=== PATIENT | female | born 1970 | race Caucasian/White ===

== ENCOUNTER 2017-11-22 22:43 | Inpatient (IN) | payer BC ==
[2017-11-22] MEDS ORDERED: Naloxone* 0.4 MG/ML 1 ML VIAL ONE (22:50)
[2017-11-22] MEDS ORDERED: Naloxone Nasal Spray* 4 MG/0.1 ML NASAL.SPR NASAL ONE (22:50)
[2017-11-22] MEDS: Naloxone* 0.4 MG/ML 1 ML VIAL IV PUSH ONE (22:55)
[2017-11-22] MEDS ORDERED: Dextrose 50% Syringe 50 ML* 25 GM/50 ML SYRINGE ONE (23:03)
[2017-11-22] MEDS ORDERED: Dextrose 50% Syringe 50 ML* 25 GM/50 ML SYRINGE IV PUSH ONE (23:05)
[2017-11-22] MEDS ORDERED: NS 0.9% 1000 ML* 1,000 ML IV SCH (23:15)
[2017-11-22 23:21] LABS: ABS Basophils 0 10^3/ul (0-0.2); ABS Eosinophils 0.2 10^3/ul (0-0.6); ABS Lymphocytes 3.3 10^3/ul (1.0-4.8); ABS Monocytes 0.7 10^3/ul (0-0.8); ABS Neutrophils 4.8 10^3/ul (1.5-7.7); ABS Nucleated RBC 0 10^3/ul; Eosinophil % 2.7 % (0-6); Hematocrit 38 % (35-47); Hemoglobin 12.8 g/dl (12.0-16.0); Lymphocyte % 36.2 % (25-47); Mean Corpuscular HGB Conc 34 g/dl (31-36); Mean Corpuscular Hemoglobin 32 pg (27-31); Mean Corpuscular Volume 95 fL (80-97); Mean Platelet Volume 9 um3 (7.4-10.4); Nucleated Red Blood Cells % 0.1; Platelet Count 347 10^3/ul (150-450); Red Blood Count 3.96 10^6/ul (4.0-5.4); Red Cell Distribution Width 13 % (10.5-15); White Blood Count 9.1 10^3/ul (3.5-10.8)
[2017-11-22 23:35] LABS: EGFR Non-African American 89.3 (>60)
[2017-11-22] MEDS ORDERED: Thiamine IV* 100 MG/ML 2 ML VIAL IM ONE (23:45)
[2017-11-23] MEDS: Naloxone* 0.4 MG/ML 1 ML VIAL IV PUSH ONE (00:12)
[2017-11-23] MEDS ORDERED: Naloxone* 0.4 MG/ML 1 ML VIAL ONE (00:15)
[2017-11-23] MEDS ORDERED: KETAMINE HCL* 50 MG/ML 10 ML VIAL ONE (00:24)
[2017-11-23] MEDS ORDERED: Propofol* 100 ML ONE (00:39)
[2017-11-23] MEDS ORDERED: fentaNYL* 50 MCG/ML 2 ML VIAL (100 MCG VIAL) ONE (00:49)
[2017-11-23] MEDS ORDERED: fentaNYL* 50 MCG/ML 2 ML VIAL (100 MCG VIAL) IV SLOW PU ONE (00:51)
[2017-11-23] MEDS ORDERED: Propofol* 500 MG/50 ML BTL IV SCH (01:00)
[2017-11-23] MEDS ORDERED: fentaNYL* 50 MCG/ML 2 ML VIAL (100 MCG VIAL) IV SLOW PU PRN (01:18)
[2017-11-23] MEDS ORDERED: LORazepam INJ* 2 MG/ML 1 ML VIAL IV PUSH PRN (01:21)
[2017-11-23] MEDS ORDERED: Naloxone* 0.4 MG/ML 1 ML VIAL IV PUSH ONE (02:00)
[2017-11-23] MEDS ORDERED: Propofol* 100 ML IV SCH (02:00)
[2017-11-23] MEDS ORDERED: NS 0.9% 1000 ML* 1,000 ML IV ONE (02:23)
[2017-11-23] MEDS: NS 0.9% 1000 ML* 1,000 ML IV SCH ×2 (03:28→17:43)
--- NOTE | 2017-11-23 04:14 | HP ---
CC: Dr. Beck* HISTORY AND PHYSICAL: DATE OF ADMISSION: 11/23/17 PRIMARY CARE PROVIDER: Dr. Beck. CHIEF COMPLAINT: Unresponsive. HISTORY OF PRESENT ILLNESS: Ms. Camarena is a 47-year-old female who is currently unresponsive and unable to provide any history. By report from the patient's ex- and daughter, the patient reportedly was drinking wine on the evening of 11/22/17 and drove to her horse barn. At some point, the patient 's ex- learnt that she was at the horse barn and he took a taxi out to go find her. When he arrived to the horse barn, he found her unresponsive in the bulk driver side seat with a cup of wine and possibly crushed up pills in the cup. The patient again was unresponsive and therefore he took her out of the bulk driver's seat, dragged her in the snow around to the passenger's side seat and drove her to the hospital. The patient upon presentation to the ER, was unresponsive. She received Narcan 0.4 mg x2. She reportedly did arouse following that. Ultimately it was determined that she needs to be intubated and she was successfully intubated in the emergency room. Of note, the patient had a prescription for Klonopin filled on 11/18/17. Reportedly all of the Klonopin pills were gone/missing. PAST MEDICAL HISTORY: Depression. PAST SURGICAL HISTORY: Bilateral foot surgery. MEDICATIONS: 1. Zoloft 50 mg p.o. daily. 2. Klonopin 0.5 mg p.o. b.i.d. p.r.n. anxiety. ALLERGIES: No known drug allergies. FAMILY HISTORY: Unobtainable from the patient and her ex- does not know. SOCIAL HISTORY: The patient is reportedly a nonsmoker. Her ex- believes that she drinks routinely but he is not sure. He states that when they were together she did not use recreational drugs but now is not sure. 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 She is . She has 2 children. REVIEW OF SYSTEMS: Unobtainable. PHYSICAL EXAMINATION GENERAL: The patient is a well-developed, middle-aged female lying in the stretcher intubated and unresponsive to voice or painful stimulus. VITAL SIGNS: Blood pressure 108/75, pulse 58, respirations 16, temp 94.6, O2 sat 100% on 50% FiO2. HEENT: Pupils are equal, they are round. They react to light. Oropharynx is intubated. There is no submandibular, cervical, or supraclavicular adenopathy. Thyroid is not enlarged. No thyroid nodules are noted. PULMONARY: Lungs are clear anteriorly and at the lateral bases. CARDIAC: Normal S1, S2. Heart rate is mildly bradycardic. It is regular. There are no murmurs. There is no lower extremity edema. ABDOMEN: Bowel sounds present. Abdomen is soft. Nontender, nondistended. MUSCULOSKELETAL: There is no cyanosis or clubbing of the digits. SKIN: Warm and dry. There are no rashes. There is evidence of prior bunionectomies on both feet. NEUROLOGIC: GCS 3T. PSYCH: Unable to be evaluated. LABORATORY DATA: WBC 9.1, hemoglobin 12.8, hematocrit 38, platelets 347. Sodium 137, potassium 3.9, chloride 104, CO2 of 27, BUN 11, creatinine 0.7. Glucose 101, calcium 8.8, bilirubin 0.2, AST 20, ALT 14, alk phos 59, albumin 4.2. Tox: Serum alcohol 193. Urine drug screen positive for opiates. Chest x-ray post intubation reveals an ET tube approximately 3 cm above the carlyn, a non-inspiratory film and no clear evidence of infiltrates. ASSESSMENT AND PLAN: Ms. Camarena is a 47-year-old female with history of depression and anxiety based on medication prescriptions who was found unresponsive by her ex- in her car with what appeared to be a cup of wine and crushed up pills in it. 1. Likely overdose: Based on the urine drug screen, it appears the patient likely overdosed on opiates. She did also reportedly arouse to Narcan administration. The patient is now intubated for airway protection and will be maintained on a propofol infusion titrating to a RASP of negative 2. Once she is extubated, a psychiatry consultation should likely be requested. 2. Alcohol intoxication: It is unclear, how much the patient drinks at baseline. As her drinking status is unclear, the patient will be started on a WAM protocol q. 2 hours. 3. Hypothermia: The patient was found in her car with the motor off. The patient will be maintained on a Melina hugger. Temperature will be monitored via Paredes probe. 4. Depression: For now, the patient's Zoloft and Klonopin will be held. 5. DVT prophylaxis: According to the adult thrombosis prophylaxis risk factor assessment guide, the patient had a total risk factor score of 2, making her moderate risk. She will be placed on heparin 5000 units subcutaneous q.12 hours. Code status is full and her surrogate decision maker at this time is unclear. TIME SPENT: Fifty minutes of critical care time was spent on this patient. [id number]/[facility] #: [id number] ANASTASIIA
[2017-11-23] MEDS: Heparin VIAL(*) 5000 UNITS/ML VIAL (FIVE THOUSAND) SUBCUT SCH ×3 (04:56→21:46)
[2017-11-23 05:30] LABS: Hematocrit 31 % (35-47); Hemoglobin 10.7 g/dl (12.0-16.0); Mean Corpuscular HGB Conc 34 g/dl (31-36); Mean Corpuscular Hemoglobin 32 pg (27-31); Mean Corpuscular Volume 95 fL (80-97); Mean Platelet Volume 9 um3 (7.4-10.4); Platelet Count 286 10^3/ul (150-450); Red Cell Distribution Width 13 % (10.5-15); White Blood Count 17.2 10^3/ul (3.5-10.8)
[2017-11-23 05:48] LABS: EGFR Non-African American 141.4 (>60)
--- NOTE | 2017-11-23 07:57 | RAD ---
Indication: Unresponsive. Single frontal view of the chest performed at 0050 hours was reviewed. No prior studies available.. No mediastinal shift is noted. Mild cardiomegaly with interstitial edema is noted. ET tube is at the level of T3-T4. Sclerosis in the proximal humerus may represent old bone infarct. IMPRESSION: ET TUBE IN APPROPRIATE LOCATION. MILD INTERSTITIAL EDEMA CONSISTENT WITH VASCULAR CONGESTION.
--- NOTE | 2017-11-23 07:58 | RAD ---
Indication: Nasogastric tube placement. Single frontal view of the chest performed at 0311 hours was reviewed. Comparison is made with previous exam dated earlier the same day. No mediastinal shift is noted. Heart is of normal size and configuration. ET tube is in place. Nasogastric tube is in place. IMPRESSION: NO ACTIVE CARDIOPULMONARY DISEASE IS NOTED. ET TUBE AND NASOGASTRIC TUBE ARE IN APPROPRIATE POSITION.
[2017-11-23] MEDS: Chlorhexidine MOUTHWASH 0.12%* 15 ML UDC TOPICAL SCH ×3 (09:23→18:04)
[2017-11-23] MEDS: Folic Acid TAB* 1 MG PO SCH (09:23)
[2017-11-23] MEDS: Pantoprazole IV* 40 MG IV SCH (09:23)
[2017-11-23] MEDS: Thiamine TAB* 100 MG TAB PO SCH (09:23)
--- NOTE | 2017-11-23 09:58 | PN ---
Date of Service: 11/23/17 - [facility] progress note Critical Care Services: Pt seen and examined at bedside. Pts ex- at bedside. Admission records reviewed, discused with Dr Adam. Pt admitted for AMS after overdose in possible suicide attempt , has h/o depression. PMHx, Social Hx, FHx, reviewed , unable to obtain any new pertinent info as pt remains intubated. REVIEW OF SYSTEMS: Unable to obtain due to intubated status MEDICATIONS: Reviewed and as per records. Vital Signs: Temp Pulse Resp BP SpO2 FiO2 100.4 F 77 19 124/76 99 50 11/23/17 09:30 11/23/17 09:30 11/23/17 09:00 11/23/17 09:30 11/23/17 09:30 11/23 04:01 Physical Exam: Neuro: On Fentanyl and Propofol, opens eyes to tactile stimuli HEENT: Pupils minimally responsive, ETT in place, OGT in place Cardiovascular: Regular, S1, S2+ Respiratory: Coarse breath sounds, no wheeze Abdomen: Obese, bowel sounds diminished Extremities: Edematous, no cyanosis Access: Peripheral IV Fluid Balance (Past 24 Hours): K=[id number] D=3232 Net -304 Intake & Output 11/21/17 11/22/17 11/23/17 11/24/17 06:59 06:59 06:59 06:59 Intake Total 1245.6 Output Total 1550 Balance -304.4 Weight 167 lb 15.876 oz Intake: IV Fluids 1194 NS (0.9%) 1194 Medicated IV 51.6 CC - Propofol/Diprivan 51.6 Output: Paredes 1550 Labs: Laboratory Results - last 24 hr 11/23/17 11/23/17 05:11 05:11 WBC 17.2 H RBC 3.30 L Hgb 10.7 L Hct 31 L MCV 95 MCH 32 H MCHC 34 RDW 13 Plt Count 286 MPV 9 Sodium 136 Potassium 4.0 Chloride 109 Carbon Dioxide 20 L Anion Gap 7 BUN 7 Creatinine 0.47 L Est GFR ( Amer) 181.9 Est GFR (Non-Af Amer) 141.4 BUN/Creatinine Ratio 14.9 Glucose 97 Calcium 7.1 L Studies: CXR: No acute opacities, ETT and OGT in optimal position Nutrition: NPO in anticipation of extubation Impression: 47 y o F with h/o depression admitted with AMS after overdose with Oxycodone, ETOH possible Klonepin with minimal response to Narcan, intubated for airway protection 1. AMS s/p intubation and mechanical ventilation 2. Drug overdose 3. Depression with possible suicidal attempt 4. Coffee ground through ETT 5.Normocytic anemia 6. ETOH abuse Plan: 1.Neuro: Sedation vacation this morning with plan for extubation when other parameters are acceptable. Propofol on hold, fent prn. Keep head of bed elevated at 30 degrees. 2.Cardiovascular: Hemodynamically stable, c/w IV fluids. 3.Respiratory: On CPAP trial, no significant secretions from ETT. Weaning as tolerated and extubation likely when all parameters met and more alert. 4.Gastrointestinal: NPO given plan for extubation. Having coffe ground fluid through OGT. On PPI. Will monitor closely given h/o ETOH abuse 5.Renal/Metabolic: BUN/Cr is within normal limits, no electrolyte abnormalities. c/w IV fluids, Monitor urine output closely 6.Infectious Disease: Leucocytosis likely reactive, no concern for infection, will check UA. Will hold off on abx for now. . 7.Hematology: Leucocytosis, reactive 8.Endocrine: Blood sugars not elevated 9.Musculoskeletal: Bedrest currently. 10.Psych/Social: Discussed with at bedside. Supportive and preventative care as ordered. SUP: ppi VTE prophylaxis: Heparin Paredes catheter given critical illness, monitoring needs for accurate assessment of TANA and KDIGO criteria for critically ill patients and to avoid potential harms of urinary retention, skin breakdown/ulcers. Disposition: ICU Code Status: Full Critical Care Time: 30min
[2017-11-23] MEDS ORDERED: Ondansetron INJ* 2 MG/ML VIAL ONE (11:32)
[2017-11-23] MEDS ORDERED: Ondansetron INJ* 2 MG/ML VIAL IV ONE ×2 (11:35→19:00)
[2017-11-23] MEDS ORDERED: Acetaminophen SUPP* 325 MG SUPP PR ONE (11:36)
--- NOTE | 2017-11-23 12:37 | PN ---
Progress Note - Progress Note Date of Service: 11/23/17 - Progress update Note: Pt did well on CPAP trial. Sedation held. Mental status improved, pt more alert and was following commands, breathing unlabored Pt met all parameters for extubation. She was extubated at 12: 30 pm. Pt currently on RA, in NAD No stridor on auscultation Pt verbalized to RN that she has taken oxycodone and Klenepin in suicidal attempt Pt reported to RN that she still contnues to have suicidal ideation 1:1 ordered Psych consult pending
[2017-11-23 17:42] LABS: Urine Appearance Clear; Urine Blood 3+ (Negative); Urine Color Straw; Urine Ketones Negative (Negative); Urine Protein Negative (Negative); Urine Specific Gravity 1.009 (1.010-1.030); Urine Urobilinogen Negative (Negative)
[2017-11-23] MEDS ORDERED: Acetaminophen TAB* 325 MG PO PRN ×2 (18:31→22:31)
[2017-11-23] MEDS ORDERED: Acetaminophen TAB* 325 MG ONE (18:45)
[2017-11-23] MEDS ORDERED: Piperacillin/Tazobac ADVAN(*) 3.375 GM in NS 0.9% 100 ML* 100 ML IVPB ONE (21:21)
--- NOTE | 2017-11-23 21:23 | PN ---
Progress Note - Progress Note Date of Service: 11/23/17 Note: Pt is now meeting 3 SIRS criteria (leukocytosis, tachypnea and fever). Will send blood culture x1, lactic acid and get portable CXR to eval for infiltrate. Will empirically start zosyn for possible aspiration. If lactic acid elevated ( or she shows other signs of severe sepsis) will bolus fluid.
[2017-11-23] MEDS ORDERED: Zosyn per Pharmacy* NOTE FOLLOW UP SCH (22:00)
[2017-11-24] MEDS: ZOSYN 3.375 GM Q8H per EXTENDED INFUSION IVPB SCH ×4 (01:55→10:49)
[2017-11-24] MEDS: NS 0.9% 1000 ML* 1,000 ML IV SCH (01:56)
[2017-11-24] MEDS: Heparin VIAL(*) 5000 UNITS/ML VIAL (FIVE THOUSAND) SUBCUT SCH ×3 (06:18→21:21)
--- NOTE | 2017-11-24 07:34 | RAD ---
HISTORY: Overdose, evaluate for infiltrates, no other history is provided COMPARISONS: November 23, 2017 at 3:11 AM VIEWS: 1: frontal portable view of the chest at 9:57 PM FINDINGS: LINES AND TUBES: None. CARDIOMEDIASTINAL SILHOUETTE: The cardiomediastinal silhouette is normal for portable technique. PLEURA: The costophrenic angles are sharp. No pleural abnormalities are noted. LUNG PARENCHYMA: The lungs are clear. ABDOMEN: The upper abdomen is clear. There is no subphrenic gas. BONES AND SOFT TISSUES: There is chondroid matrix of the proximal right forearm which may reflect bone infarct versus enchondroma. IMPRESSION: NO ACTIVE CARDIOPULMONARY DISEASE.
[2017-11-24] MEDS: Pantoprazole IV* 40 MG IV SCH (07:56)
[2017-11-24] MEDS: Folic Acid TAB* 1 MG PO SCH (07:56)
[2017-11-24] MEDS: Thiamine TAB* 100 MG TAB PO SCH (07:56)
--- NOTE | 2017-11-24 11:15 | PN ---
Progress Note - Progress Note Date of Service: 11/24/17 Note: CRITICAL CARE MEDICINE Date: 11/24/17 Time: 1045 SUBJECTIVE: Patient seen and examined. brother and pts daughter at bedside. pt gives permission for them to listen and ask question regarding care. PHYSICAL EXAM: Vital Signs: Reviewed. temp up slightly Neurologic: communicating. HEENT: pupils equal. Sclera anicteric. Trachea midline. Cardiovascular: S1 S2 Respiratory: cta but mild tachypnea Abdomen: Soft, nt. No r/g/r. Extremities: Warm. Psych: remorseful but with a depressive affect. Access: piv LABS: Reviewed. IMAGING: Reviewed. CXR wnl MEDICATIONS: Reviewed. ASSESSMENT: 47 F Intentional klondipin overdose with ongoing suicidal ideation Toxic encephalopathy on admission ? Aspiration pneumonitis ?flu Major depression PLAN: medically doing well but not completely clear for pysch yet - hopefully come tomorrow. Has low grade fever and placed on zosyn overnight. question flu. no infiltrate. if flu negative then more likely just aspiration. recheck wbc. if down, no reason for abx requirement either as again would be just aspiration. Ua neg. Pt feels better. remorseful. not much appetite. Oob. dc sara. dc ivf. psych eval pending floor today and then likely psych tomorrow. Supportive and preventative care as ordered. Disposition: floor Code Status: Full Critical Care Time: 25min Tirso Croft DO
[2017-11-24 11:26] LABS: ABS Basophils 0.1 10^3/ul (0-0.2); ABS Eosinophils 0.1 10^3/ul (0-0.6); ABS Lymphocytes 1.1 10^3/ul (1.0-4.8); ABS Monocytes 0.6 10^3/ul (0-0.8); ABS Neutrophils 8.2 10^3/ul (1.5-7.7); ABS Nucleated RBC 0 10^3/ul; Eosinophil % 1.4 % (0-6); Hematocrit 32 % (35-47); Lymphocyte % 10.6 % (25-47); Mean Corpuscular HGB Conc 34 g/dl (31-36); Mean Corpuscular Hemoglobin 32 pg (27-31); Mean Corpuscular Volume 94 fL (80-97); Mean Platelet Volume 8 um3 (7.4-10.4); Nucleated Red Blood Cells % 0; Platelet Count 238 10^3/ul (150-450); Red Blood Count 3.41 10^6/ul (4.0-5.4); Red Cell Distribution Width 13 % (10.5-15); White Blood Count 10.1 10^3/ul (3.5-10.8)
[2017-11-24 11:42] LABS: EGFR Non-African American 92.3 (>60)
[2017-11-24] MEDS ORDERED: Magnesium Sulfate 2 GM IV* 2 GM/50 ML BAG IVPB ONE (12:21)
[2017-11-24] MEDS ORDERED: Potassium Phosphate IV* 20 MMOLE in NS 0.9% 250 ML* 250 ML IVPB ONE (12:22)
--- NOTE | 2017-11-24 12:35 | CONSULT ---
Consult Consult: This clinician attempted to assess the patient in room 5 of the ICU. She was peacefully sleeping and I chose not to disturb her. I did speak with advisor advocate angel co founder attending Dr. Croft, who indicated that she was still running fevers today and may have influenza versus mild aspiration and would benefit from a further day on the medical service. He did observe that the patient appears remorseful for her overdose but with a depressed affect. Family ( daughter and brother) are supportive and wanting to be involved in her care. Full consult to follow tomorrow, November 25.
--- NOTE | 2017-11-24 18:14 | PN ---
Hospitalist Progress Note Date of Service: 11/24/17 I have seen and examined Ms. Camarena today. We will assume her care. She is a 47 yo lady with history of depression who drank wine and overdosed on oxycodone on 11/22. She required intubation at admission, and has been having fevers and leukocytosis in the ICU. An infectious work up is negative thus far. I am adding back pip/tazo for aspiration coverage and sending blood cultures. She does express regret that she attempted to harm herself, but also admitted to her nurse that she still does not want to live. Psychiatry is consulted. She is still quite drowsy, will benefit from medical attention prior to psychiatric.
[2017-11-24] MEDS: Piperacillin/Tazobac ADVAN(*) 3.375 GM in NS 0.9% 100 ML* 100 ML IVPB SCH (21:05)
[2017-11-25] MEDS: Piperacillin/Tazobac ADVAN(*) 3.375 GM in NS 0.9% 100 ML* 100 ML IVPB SCH ×2 (03:47→11:19)
[2017-11-25] MEDS: Heparin VIAL(*) 5000 UNITS/ML VIAL (FIVE THOUSAND) SUBCUT SCH ×2 (06:05→13:03)
[2017-11-25 06:06] LABS: ABS Basophils 0 10^3/ul (0-0.2); ABS Eosinophils 0.3 10^3/ul (0-0.6); ABS Lymphocytes 1.3 10^3/ul (1.0-4.8); ABS Monocytes 0.5 10^3/ul (0-0.8); ABS Neutrophils 4.7 10^3/ul (1.5-7.7); ABS Nucleated RBC 0 10^3/ul; Eosinophil % 3.7 % (0-6); Hematocrit 32 % (35-47); Hemoglobin 10.8 g/dl (12.0-16.0); Lymphocyte % 18.9 % (25-47); Mean Corpuscular HGB Conc 34 g/dl (31-36); Mean Corpuscular Hemoglobin 32 pg (27-31); Mean Corpuscular Volume 94 fL (80-97); Mean Platelet Volume 8 um3 (7.4-10.4); Nucleated Red Blood Cells % 0; Platelet Count 231 10^3/ul (150-450); Red Blood Count 3.37 10^6/ul (4.0-5.4); Red Cell Distribution Width 13 % (10.5-15); White Blood Count 6.8 10^3/ul (3.5-10.8)
[2017-11-25] MEDS: Folic Acid TAB* 1 MG PO SCH (09:24)
[2017-11-25] MEDS: Thiamine TAB* 100 MG TAB PO SCH (09:25)
[2017-11-25 11:13] VITALS: BP 143/76
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
--- NOTE | 2017-11-26 10:51 | DS ---
DISCHARGE SUMMARY: DATE OF ADMISSION: 11/23/17 DATE OF DISCHARGE: 11/25/17 DISPOSITION ON DISCHARGE: Mental health unit. MEDICATIONS ON DISCHARGE: Home medications included: 1. Zoloft 50 mg daily. 2. Klonopin 0.5 mg twice daily. HISTORY OF PRESENT ILLNESS AND HOSPITAL COURSE: This is a 47-year-old female, who presented to the hospital unresponsive after suspected overdose with alcohol and a cup of crushed pills, thought to be oxycodone. She presented to the hospital unresponsive, received Narcan with reportedly some increased arousal. She was intubated in the emergency room for airway protection. Hospital course was significant for fevers of unknown origin. She was started on Zosyn, transitioned to clindamycin secondary to concern for pneumonia. She did have a white blood cell count of 17.2 that resolved the following day and a chest x-ray inconsistent with a pneumonia. For that reason, it was thought to represent an aspiration pneumonitis and antibiotic could be stopped on transition to MHU. On the day of transfer, the patient remained tearful. She was evaluated by MHU and will be transferred there. TIME SPENT: Greater than 30 minutes was spent on the discharge of the patient, greater than half was spent [id number] with the patient. [id number]/[facility] #: [id number] ANASTASIIA
== END 2017-11-25 14:49 | DRG 816 ==
LOC: ED 22:43 → ICU 11-23 01:18 → MED 11-24 11:08
PROVIDERS: ADMIT Hospitalist; ATTEND Internal Medicine
PROC: 0BH17EZ Insertion of Endotracheal Airway into Trachea, Via Natural or Artificial Opening (ICD-10-PCS; principal; 2017-11-23)
PROC: 5A1935Z Respiratory Ventilation, Less than 24 Consecutive Hours (ICD-10-PCS; 2017-11-23)
DX: T51.0X2A Toxic effect of ethanol, intentional self-harm, initial encounter (principal); J69.0 Pneumonitis due to inhalation of food and vomit; G92 Toxic encephalopathy; F33.9 Major depressive disorder, recurrent, unspecified; R45.851 Suicidal ideations; T40.2X2A Poisoning by other opioids, intentional self-harm, initial encounter; Y92.9 Unspecified place or not applicable; X58.XXXA Exposure to other specified factors, initial encounter; F41.9 Anxiety disorder, unspecified; F10.129 Alcohol abuse with intoxication, unspecified; Y90.6 Blood alcohol level of 120-199 mg/100 ml; T68.XXXA Hypothermia, initial encounter; D64.9 Anemia, unspecified; Z81.1 Family history of alcohol abuse and dependence; Z79.899 Other long term (current) drug therapy; X31.XXXA Exposure to excessive natural cold, initial encounter; Z81.8 Family history of other mental and behavioral disorders
CPT/HCPCS: 36415; 71045; 80048; 80053; 80307; 80320; 81003; 81015; 82248; 83605; 83735; 84100; 84443; 85025; 85027; 87040; 87086; 87502; 87641; 93005; 94002; 94003; 96374; 99285; A9270-GY; G0480; J1644; J2060; J2310; J2405; J2543; J2704; J3010; J3475

== ENCOUNTER 2017-11-25 13:33 | Inpatient (IN) | payer BC ==
[2017-11-25] MEDS ORDERED: Al Hydrox/Mg Hydrox/Simet LIQ* 30 ML UDC PO PRN (13:38)
[2017-11-25] MEDS ORDERED: Acetaminophen TAB* 325 MG PO PRN (13:38)
[2017-11-25] MEDS ORDERED: hydrOXYzine HCL TAB* 50 MG PO PRN (13:40)
[2017-11-26] MEDS: Vitamin THERAPEUTIC TAB PO SCH (09:30)
[2017-11-26] MEDS: Sertraline* 50 MG TAB PO SCH (11:44)
--- NOTE | 2017-11-26 14:52 | PN ---
Subjective - Subjective Service Type: 36644 Hosp care 25 min moderate complexity Subjective: Patient is dysphoric and tearful. She states she wants to be discharged, to be able to speak with her and to be able to use her tevin. Director Of Financial Aid informs her about use of telephones on the unit and declines use of tevin in order to promote programming attendance. She is apologetic and often defensive with little questions or prompting from senior underwriter. She states she will "be good" and "won't do something stupid again" in reference to recent suicide attempt. She denies having depression and states that her current state is completely attributed to sertraline being held. She reports little to no appetite. She states she had difficulty initiating sleep and had frequent waking. Objective - Appearance Appearance: Well Developed/Nourished Dysmorphic Features: Yes Hygiene: Normal Grooming: Fairly Well Kept - Behavior Psychomotor Activities: Normal Exhibits Abnormal Movement: No - Attitude and Relatedness Attitude and Relatedness: Child Like Eye Contact: Poor - Speech Quality: Unpressured Latencies: Normal Quantity: Copious - Mood Patient's Decription of Mood: "Fine" - Affect Observed Affect: Tearful Affect Consistent with: Dysphoria - Thought Process Patient's Thought Process: Circumstantial Thought Content: No Passive Wish, No Suicidal Planning, No Homicidal Ideation, No Paranoid Ideation - Sensorium Experiencing Hallucinations: No, Sensorium is Clear Type of Hallucinations: Visual: No, Auditory: No, Command: No - Level of Consciousness Level of Consciousness: Alert Orientation: Yes Intact, Yes Orientated to Time, Yes Orientated to Place, Yes Orientated to Person - Impulse Control Impulse Control: Poor - Insight and Judgement Insight and Judgement: Poor - Group Participation Particating in Group Activities: Yes - Medication Management Medication Management Adherence: Yes Assessment - Assessment Merits Inpatient Hospitalization: For Immediate Safety, For Stabilization, To Initiate Treatment Inpatient DSM-IV Dx: major depressive d/o; r/o PTSD; consider cluster B traits Clinical Impression: 47yo white female, domiciled and employed, from . She and her estranged have continued a secretive affair while he is living with a girlfriend. She attempted to overdose on alcohol, clonazepam and vicodin requiring intubation and intensive care. After medically stabilized, patient denied need for psychiatric services and was admitted under involuntary status. She merits hospitalization for immediate safety, evaluation and stabilization. Plan - Plan Treatment Plan: Name: UBALDO BOTELLO Birthdate: 1970 [id number] continue acute intensive psychiatric treatment. Restart sertraline, trial low dose trazodone for sleep and hydroxyzine prn anxiety. discharge planning to include outpatient referrals. Continued Medication Management: Start Medication Medications: Current Medications Acetaminophen (Tylenol Tab*) 650 mg PO Q4H PRN PRN Reason: for pain; or Temp >101 F Al Hydrox/Mg Hydrox/Simethicone (Maalox Plus*) 30 ml PO Q4H PRN PRN Reason: INDIGESTION Hydroxyzine HCl (Atarax Tab*) 50 mg PO Q4H PRN PRN Reason: ANXIETY Multivitamins (Theragran Tab*) 1 tab PO DAILY [facility] Last Admin: 11/26/17 09:30 Dose: Not Given Sertraline HCl (Zoloft*) 50 mg PO DAILY [facility] Last Admin: 11/26/17 11:44 Dose: 50 mg trazodone 50mg PO QHS - Discharge Plan Discharge Plan: Outpatient Follow Up Outpatient Program: [facility]
[2017-11-26] MEDS: traZODone TAB* 50 MG TAB PO SCH (20:47)
[2017-11-27] MEDS: Sertraline* 50 MG TAB PO SCH (08:53)
[2017-11-27] MEDS: Vitamin THERAPEUTIC TAB PO SCH (08:54)
--- NOTE | 2017-11-27 11:31 | PN ---
MHU: Group Therapy Note - Service Type Service Type: [id number] Group Psychotherapy - Cognitive Behavioral Group Therapy ( CBT):Patient was attentive and participatory in CBT programming this morning, and remained in good behavioral control. Patient expressed positive insights regarding relevant treatment interventions and goals.
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
[2017-11-27] MEDS: traZODone TAB* 50 MG TAB PO SCH (20:47)
[2017-11-28 08:08] VITALS: BP 121/79
--- NOTE | 2017-11-28 08:40 | PN ---
MHU: Group Therapy Note - Service Type Service Type: [id number] Group Psychotherapy - Medication Education Group: Patient was attentive and participatory in group, and remained in good behavioral control. Patient expressed positive insights regarding relevant treatment interventions. Patient stated understanding of material discussed and had appropriate questions.
[2017-11-28] MEDS: Vitamin THERAPEUTIC TAB PO SCH (09:00)
[2017-11-28] MEDS: Sertraline* 50 MG TAB PO SCH (09:00)
--- NOTE | 2017-11-28 11:41 | PN ---
MHU: Group Therapy Note - Service Type Service Type: [id number] Group Psychotherapy - Cognitive Behavioral Group Therapy ( CBT):Patient was attentive and participatory in CBT programming this morning, and remained in good behavioral control. Patient expressed positive insights regarding relevant treatment interventions and goals.
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
== END 2017-11-28 15:15 | disposition home or self-care (01) | DRG 754 ==
LOC: BSU 14:50
PROVIDERS: ADMIT Psychiatry & Neurology Psychiatry; ATTEND Psychiatry & Neurology Psychiatry
DX: F32.9 Major depressive disorder, single episode, unspecified (principal); T14.91XD Suicide attempt, subsequent encounter; T42.4X2D Poisoning by benzodiazepines, intentional self-harm, subsequent encounter; T39.1X2D Poisoning by 4-Aminophenol derivatives, intentional self-harm, subsequent encounter; X58.XXXD Exposure to other specified factors, subsequent encounter
CPT/HCPCS: 90853; 99231; 99232; 99238; A9270-GY